=== PATIENT | male | born 1975 | race Hispanic/Latino ===

== ENCOUNTER 2018-02-25 06:15 | Day surgery (SDC) | payer OTHER ==
[2018-02-19 10:00] VITALS: BMI 22.9
[2018-02-25] MEDS ORDERED: Lactated Ringer's 1,000 ML IV ONE ×3 (07:00→10:21)
[2018-02-25] MEDS ORDERED: Ropivacaine 0.5% 30ML IV ONE (07:32)
[2018-02-25] MEDS ORDERED: Bupivacaine HCl 0.25% PF (30 ml) Inj ONE (07:34)
--- NOTE | 2018-02-25 07:34 | CP.SDSHP ---
Same Day Surgery H & P - History Proposed Procedure: Left shoulder arthroscopy, decompression, labral repair Pre-Op Diagnosis: Left shoulder labral tear, impingment - Previous Medical/Surgical History Comments: [employer] patient report reviewed, tramadol 01/2018. Patient counseled on the risks of addiction, physical or psychological dependence, and overdose associated with opioid drugs and the danger of taking opioid drugs with alcohol and other central nervous system depressants, and cautioned patient on storage and disposal. - Allergies Allergies: Allergies Penicillins Allergy (Verified 02/25/18 06:39) ANAPHYLAXIS - Physical Exam Vital Signs: Vital Signs 02/25/18 07:23 Temperature 98.4 F Pulse Rate 69 Respiratory 18 Rate Blood Pressure 118/75 O2 Sat by Pulse 96 Oximetry Neuro: WNL Heart: WNL Lungs: WNL - {Optional Preform as Required} Ortho: Other (+radial pulse, sensation intact, painful ROM) Other Pertinent Findings: MRI on chart - Impression Impression: 42M with left shoulder labral tear, shoulder impingment for shoulder arthroscopy/labral repair/decompression Pt. Evaluated Today:Candidate for Anesthesia & Procedure: Yes - Date & Time Date: 02/25/18 Time: 07:35 Short Stay Discharge - Short Stay Discharge Admitting Diagnosis/Reason for Visit: M19.012/S43.432D Disposition: HOME/ ROUTINE Medications: oxyCODONE/Acetaminophen [Percocet 5/325 mg Tab] 2 ea PO Q4H PRN #40 tab PRN Reason: Pain, Moderate (4-7) Referrals: FAMILY PROVIDER,NO [Primary Care Provider] - Past Patient History - Past Medical History & Family History Past Medical History?: Yes Past Family History: Reviewed and not pertinent - Past Social History Smoking Status: Heavy Smoker > 10 Cigarettes Daily - CARDIAC Hx Cardiac Disorders: No - PULMONARY Hx Respiratory Disorders: No - NEUROLOGICAL Hx Neurological Disorder: No - HEENT Hx HEENT Problems: No - RENAL Hx Chronic Kidney Disease: No - ENDOCRINE/METABOLIC Hx Endocrine Disorders: No - HEMATOLOGICAL/ONCOLOGICAL Hx Blood Disorders: Yes Hx Human Immunodeficiency Virus (HIV): Yes (2015) - INTEGUMENTARY Hx Dermatological Problems: No - MUSCULOSKELETAL/RHEUMATOLOGICAL Hx Musculoskeletal Disorders: No - GASTROINTESTINAL Hx Gastrointestinal Disorders: No - GENITOURINARY/GYNECOLOGICAL Hx Genitourinary Disorders: No - PSYCHIATRIC Hx Psychophysiologic Disorder: No - SURGICAL HISTORY Hx Surgeries: Yes Hx Orthopedic Surgery: Yes (right total knee) Other/Comment: orchiectomy right - ANESTHESIA Hx Anesthesia: Yes Hx Anesthesia Reactions: No Has any member of the family had a problem w/ anesthesia?: No
[2018-02-25] MEDS ORDERED: Lidocaine 2% w Epi 1:100,000 Inj IJ ONE (07:35)
[2018-02-25] MEDS ORDERED: Propofol 10 mg/ml Inj (20 ML) ONE (07:39)
[2018-02-25] MEDS ORDERED: Succinylcholine 200 mg/10 ml Inj IV ONE (07:39)
[2018-02-25] MEDS ORDERED: Midazolam 2 MG/2 ML VIAL ONE (07:39)
[2018-02-25] MEDS ORDERED: Rocuronium 10 mg/ml (5 ml) ONE (08:09)
[2018-02-25] MEDS ORDERED: Sevoflurane - Inhalation Anesthetic Liq (250 ml) ONE (08:21)
[2018-02-25] MEDS ORDERED: methylPREDNISolone Depo 80 mg/ml Inj ONE (09:10)
[2018-02-25] MEDS ORDERED: Bacitracin Ointment 30 GM TUBE ONE (09:10)
[2018-02-25] MEDS ORDERED: Bacitracin OINT 15GM TOP ONE (10:00)
--- NOTE | 2018-02-25 10:12 | PCM.SURG1 ---
Surgeon's Initial Post Op Note - Surgeon's Notes Surgeon: Clari Alligator Trapper: VENKATA Peña Type of Anesthesia: General Endo, Block Regional Anesthesia Administered By: DR Cruz Pre-Operative Diagnosis: inetrnal derangement L Shoulder. subacromial/ subclavicular impingement. glenoid labral tear. adhesions subacromial space Operative Findings: tear glenoid labrum. subacromial imprinegment. A/C joint arthropathy. adhesions/bursitis subacromial space Post-Operative Diagnosis: as above Operation Performed: arthroscopic Labral repair L shoulder. \arthroscvopic partial distal claviculectomy. arthroscopic partial acromioplasty. arthroscopic partial bursectomy/arthroscopic lysis of adhesions. 'applx shoulder immobilizer Specimen/Specimens Removed: cartilage /synovium/bone Estimated Blood Loss: EBL {In ML}: 15 Blood Products Given: N/A Drains Used: No Drains Post-Op Condition: Fair Date of Surgery/Procedure: 02/25/18 Time of Surgery/Procedure: 08:45 (time in room 7:37/anaesthesia indcution time)
[2018-02-25] MEDS ORDERED: HYDROmorphone 0.5 mg/0.5 ml ISec IVP PRN (10:24)
[2018-02-25] MEDS ORDERED: Lactated Ringer's 1,000 ML IV SCH (10:30)
--- NOTE | 2018-02-25 10:33 | PCM.ANESB1 ---
Interscalene Block - Brachial Plexus Date of Procedure: 02/25/18 Anesthesiologist: Chapin Cruz MD Procedure Performed: Interscalene Block of Brachial Plexus Left - Procedure Interscalene Block of Brachial Plexus: This procedure was explained to the patient that it is for post-operative pain management. Consent was obtained after a thorough discussion with the patient regarding the benefits and possible complications of local anesthetic block of the Brachial Plexus at the Interscalene area. The patient was brought to the Operating Room and standard monitors were applied. Time out was held with the circulating nurse to confirm the correct surgery and appropriate block. After applying Oxygen by nasal cannula and administering IV Sedation, the patient's head was gently rotated away from the _Left operative shoulder and the anterior scalene groove was carefully palpated. The ultrasound transducer was then applied to the skin in the transverse plane and the brachial plexus was visualized lateral to the carotid artery and in between the anterior and middle scalene muscles. After identification,the anterior lateral portion of the neck was prepped with Betadine solution three times and Lidocaine 1% was injected subcutaneously for topical analgesia. At this point, a # 22 gauge Stimuplex 2 inches insulated needle was inserted into the interscalene groove and directed in a caudal and midline direction. The needle was inserted lateral to the ultrasound transducer in-plane towards the brachial plexus in a gocclik-me-xcdvol direction. Needle advancement was performed carefully under direct ultrasound visualization. Nerve stimulator was used and twitched of the affected extremity including the hand brachialis muscles, biceps and the deltoid was obtained at a current of _0.02____MA. After repeated negative aspiration,__30___cc of_0.5%____,_Ropivacaine were injected. Under ultrasound guidance the local anesthetics were observed surrounding the roots of the brachial plexus. The needle was removed intact and sterile dressing was applied. The patient had stable vital signs, was conscious and in no apparent distress. The patient tolerated the interscalene block of the bracheal plexus well with stable vital signs and was prepared for subsequent surgery.
[2018-02-25] MEDS ORDERED: Oxycodone/Acetaminophen 5/325 mg Tab PO PRN (11:23)
[2018-02-25 12:50] VITALS: RESP 20
[2018-02-25 14:00] VITALS: BP 151/85; PULSE 83; TEMP 98.5; O2SAT 97
--- NOTE | 2018-02-27 13:10 | OP ---
PROCEDURE DATE: 02/25/2018 PREOPERATIVE DIAGNOSES: 1. Internal derangement of the left shoulder. 2. Glenoid labral tear. 3. Subclavicular spur, acromioclavicular joint arthropathy, adhesion subacromial space. OPERATIVE FINDINGS: 1. Tear of glenoid labrum extending anterior to posterior to the root of the biceps tendon, left shoulder. 2. Subacromial impingement. 3. AC joint arthropathy. 4. Adhesions and bursitis of the subacromial space. 5. Synovitis in the glenohumeral joint with evidence of chondral damage. POSTOPERATIVE DIAGNOSES: 1. Tear of glenoid labrum extending anterior to posterior to the root of the biceps tendon, left shoulder. 2. Subacromial impingement. 3. AC joint arthropathy. 4. Adhesions and bursitis of the subacromial space. 5. Synovitis in the glenohumeral joint with evidence of chondral damage. OPERATIVE PROCEDURE: 1. Arthroscopic labral repair, left shoulder. Left shoulder repair SLAP lesion. 2. Arthroscopic partial distal claviculectomy. 3. Arthroscopic partial acromioplasty. 4. Extensive debridement of the glenohumeral joint and chondroplasty. 5. Arthroscopic partial bursectomy, lysis of adhesions. 6. Application of shoulder immobilizer. SURGEON: Larry Montague MD. [employer]BORNE [employer] DELIVERY SPECIALIST: Radha Pang, certified registered nursing assistant professor of chemistry. ANESTHESIA: General endotracheal anesthesia with regional block. ANESTHESIOLOGIST: Chapin Cruz MD. POSTOPERATIVE CONDITION: Stable. TIME OF THE PROCEDURE: Incision time 08:45. Time in the room 07:37 anesthesia induction time. OPERATIVE INDICATION: Cliff Daniel is a 42-year-old gentleman who presents with pain and restricted range of motion of the left shoulder. The patient has comorbidity, which includes human immunodeficiency virus. The patient is being treated with antivirals. The patient has had persistent left shoulder pain and restricted range of motion treated with ice, anti-inflammatory medications, and therapy. Pros, cons, risks and benefits of surgical approach were discussed. After failure of conservative management, the possibility of mechanical failure, infection, thromboembolic disease, secondary or tertiary surgery was discussed. The patient can no longer withstand the discomfort and wished the surgery to be accomplished. The possibility of stiffness, secondary surgery, the possibility that the patient does have cervical spine disease as well was discussed. The patient has had a positive response to subacromial injections and as a result after failure of conservative management and all evidence of response to the injections, the patient presents at this point in time for shoulder arthroscopy, decompression, repair. Informed consent had been obtained. OPERATIVE PROCEDURE: After the satisfactory induction of general and regional anesthesia, after having identified the side, site and procedure and a critical pause/time-out, after the satisfactory induction of the anesthetic, the patient identified as Cliff Daniel in the modified russo chair position, the left upper extremity was prepped and free draped in the usual fashion for upper extremity surgery. The shoulder positioner had been employed. All bony prominences were well padded. The left upper extremity was prepped and free draped in the usual fashion for upper extremity surgery. After having identified the side, site and procedure and critical pause/time-out, after the satisfactory induction of the anesthetic, the patient identified as Cliff Daniel, again in the modified russo chair position, the left upper extremity was prepped and draped in the usual fashion for upper extremity surgery. The topographic anatomy of the shoulder was marked. At a point approximately one thumbs breadth inferior to the lateral aspect of the acromion, the joint was insufflated with 10 mL of 1% lidocaine without epinephrine using #11 blade, followed by spreading, followed by introduction of blunt trocar. The arthroscope was introduced. There was found to be a massive amount of synovitis and chondral injury to the glenoid. Triangulation was accomplished using #18-gauge spinal needle, taking great care to staying lateral to the coracoid process. Using #11 blade followed by spreading, followed by introduction of the Wissinger miriam, the cannula was placed and again examination of the glenohumeral joint commences. There was found to be a tear of the glenoid labrum extending from the 3 o'clock position anteriorly to the root of the biceps tendon. Triangulation was accomplished posterolaterally using #18-gauge spinal needle, followed by #11 blade followed by spreading, followed by introduction of a straight Hemostat. At this point in time, a thorough and extensive debridement of the glenohumeral joint was accomplished using the arthroscopic shaver. Extensive debridement of the glenohumeral joint was accomplished using the arthroscopic shaver and the ArthroCare arthroscopic wand. With the arthroscope posteriorly, chondroplasty of the lesion in the superior to the equator of the glenoid was accomplished using the arthroscopic shaver. Using a combination of 3.4 mm Dyonics suction punch and the arthroscopic shaver, the chondral damage was carefully debrided using a combination of 3.4 mm Dyonics suction punch and the arthroscopic shaver. After mechanical chondroplasty with the arthroscopic shaver and after thorough debridement with the arthroscopic shaver, careful debridement of the glenohumeral joint having been completed, the interval between the glenoid labral tear and the glenoid was developed using the 3.4 mm Dyonics suction punch and the arthroscopic rasp. This having been accomplished, the lasso was placed around the tear and the Nitinol wire was brought out posteriorly. The Nitinol wire having been brought out posteriorly, the fiber braid was placed anteriorly. The second limb of the fiber braid was brought out anteriorly. At this point in time, drilling was accomplished on the anterior glenoid face followed by introduction of the blunt trocar. The PushLock anchor was loaded with the FiberWire and was impacted. This having been accomplished, the secondary portion of the glenoid labral tear further superiorly on the clock face of the glenoid was accomplished and the same exact procedure was accomplished. Nitinol wire being brought through the joint posteriorly and the FiberTape brought out both limbs anteriorly. Drilling having been accomplished, PushLock anchor was introduced. Then this area of chondral damage, this was again debrided using a combination of 3.4 mm Dyonics suction punch, the arthroscopic shaver and the arthroscopic wand. Further debridement and completion of the debridement of the glenohumeral joint was accomplished and the arthroscope now was removed and placed in the subacromial space. A further mid lateral portal was accomplished using #18-gauge spinal needle, followed by #11 blade, followed by spreading, introduction of blunt trocar with the arthroscope now posteriorly, there was found to be massive amount of adhesions and bursitis in the subacromial space. There was found to be subclavicular impingement, AC joint arthropathy, and subacromial impingement as well. With the arthroscope posteriorly and with the arthroscopic shaver now mid laterally in the so-called [place] portal, extensive debridement of the subacromial space was accomplished using the arthroscopic shaver. Using a combination of the arthroscopic shaver and the arthroscopic wand, extensive debridement and lysis of adhesions of the subacromial space was accomplished including partial bursectomy. Hemostasis controlled with the wand. This having been accomplished, the undersurface of the distal clavicle was found to be impinging and there was evidence of AC joint arthropathy. With the arthroscope now mid laterally, using a combination of the arthroscopic shaver, adhesions and bursa in the subacromial space were debrided. Hemostasis controlled with the arthroscopic wand. Using the arthroscopic bur at this point in time with the arthroscope posteriorly with the bur mid laterally and posterolaterally, a partial acromioplasty was accomplished. The subacromial spur was identified and this was carefully debrided. Hemostasis controlled with the arthroscopic wand. With the arthroscope posteriorly, the distal clavicle was identified. There was found to be evidence of AC joint arthropathy. With the arthroscope now mid laterally, the arthroscopic bur was placed posterolaterally and a partial distal claviculectomy was accomplished of approximately the distal 1 cm of the clavicle to include the articular cartilage. Partial acromioplasty is accomplished and debridement of the distal clavicle, and partial distal claviculectomy with debridement of the articular cartilage was accomplished. Partial distal claviculectomy having been completed to include the articular cartilage. Partial acromioplasty having been completed. Final thorough debridement of the subacromial space was accomplished using the arthroscopic shaver and again the arthroscopic wand. The wound was thoroughly irrigated. Portals were closed with interrupted Vicryl and nylon. [place] Puckett compression dressing was applied and so-called [place] abduction splint. The neurocirculatory status was intact in recovery. The completion of the operative goal could not be obtained without the assistance of Radha Pang, certified registered nursing assistant professor of chemistry. Larry Montague MD
== END 2018-02-25 14:55 | disposition home or self-care (01) ==
LOC: H.OPSURG 06:15
PROVIDERS: ATTEND Orthopaedic Surgery
DX: M19.012 Primary osteoarthritis, left shoulder (principal); Z21 Asymptomatic human immunodeficiency virus [HIV] infection status; F17.210 Nicotine dependence, cigarettes, uncomplicated; Z88.0 Allergy status to penicillin; M75.42 Impingement syndrome of left shoulder; M75.02 Adhesive capsulitis of left shoulder
CPT/HCPCS: 29823; 29825; 29916; J0330; J2250; J2704; J3010; J7120